=== PATIENT | male | born 1940 | race Caucasian/White ===

== ENCOUNTER 2020-04-13 08:58 | Inpatient (IN) | payer OTHER ==
[~2020-04-13] VITALS: Ht 152.4 cm; Wt 67.1 kg
[2020-04-13] MEDS ORDERED: TENORMIN100 M1 (09:11)
== END 2020-04-17 16:04 | disposition home or self-care (01) | DRG 379 ==
LOC: ER 08:58 → MEDI 15:50 → SURH 04-14 16:51
PROVIDERS: ADMIT Internal Medicine; ATTEND Internal Medicine
PROC: 4A12X4Z Monitoring of Cardiac Electrical Activity, External Approach (ICD-10-PCS; 2020-04-13)
PROC: 30233N1 Transfusion of Nonautologous Red Blood Cells into Peripheral Vein, Percutaneous Approach (ICD-10-PCS; 2020-04-14)
PROC: 0DB78ZX Excision of Stomach, Pylorus, Via Natural or Artificial Opening Endoscopic, Diagnostic (ICD-10-PCS; principal; 2020-04-16)
DX: K92.1 Melena (principal); I10 Essential (primary) hypertension; E86.0 Dehydration; D64.9 Anemia, unspecified; Z20.828 Contact with and (suspected) exposure to other viral communicable diseases; K26.9 Duodenal ulcer, unspecified as acute or chronic, without hemorrhage or perforation; I48.91 Unspecified atrial fibrillation; D13.1 Benign neoplasm of stomach